=== PATIENT | male | born 1995 | race Caucasian/White ===

== ENCOUNTER → 2016-12-30 | Outpatient (CLI) | payer OTHER ==
[~2016-12-30] MED LIST: ADVAIR 1001 DISK W/D; ALBUTEROL17 GM; ALBUTEROL17 GM INH; ARNICA; BUSPAR; CENTRUM PO; IBUPROFEN PO; ORAP2 MG; SINGULAIR PO; TRAUMEEL; VIT B; ZYRTEC10 M2; [UNRECOGNIZED DRUG - OTHER]; [UNRECOGNIZED DRUG - OTHER]; [UNRECOGNIZED DRUG - OTHER]; [UNRECOGNIZED DRUG - REMARK]
--- NOTE | ~2016-12-30 | PFT ---
[id number] [facility]. [place], [place] [address] [id number] O MR#: [id number] NAME: ANSLEY IYER II ROOM: SEX: M STUDY DATE/TIME: 01/02/2017 : 1995 AGE: 21 STUDY DESCRIPTION: Attending Physician: Hubert Harris M.D. Referring Physician: Hubert Harris M.D. Primary Care Physician: Hubert Harris M.D. PULMONARY DIAGNOSTIC REPORT EXAM Pulmonary function test. FINDINGS Spirometry is suggestive of a moderate obstructive defect. There is no significant response to bronchodilators. FEV1 is 3.32 liters, 58% of predicted. Flow volume loop suggests an obstructive defect. It is quite flattened, so at least consider possible fixed upper airway obstruction. Total lung capacity is 93%, which is normal. Diffusion capacity is normal. Dictated by... Cary Tolliver TD: 01/02/2017 11:56 JOB #: [id number] CC: Hubert Harris M.D. PULMONARY DIAGNOSTIC REPORT Page 1 of 1
== END | disposition home or self-care (01) ==
LOC: CRC 08:41
DX: J45.909 Unspecified asthma, uncomplicated (principal)
CPT/HCPCS: 94060; 94726; 94729